=== PATIENT | male | born 1990 | race Caucasian/White ===

== ENCOUNTER 2019-12-22 14:04 | Emergency (ER) | payer SELFPAY ==
[~2019-12-22] VITALS: Ht 170.2 cm; Wt 81.6 kg
[2019-12-22 14:14] VITALS: BP 131/82; Ht 170.2 cm; Wt 81.6 kg
== END 2019-12-22 14:25 | disposition left against medical advice (07) ==
LOC: ED 14:04
DX: Z53.21 Procedure and treatment not carried out due to patient leaving prior to being seen by health care provider (principal)